=== PATIENT | female | born 1930 | race Caucasian/White ===

== ENCOUNTER → 2016-05-18 | Outpatient (CLI) | payer OTHER, BC ==
[~2016-05-18] MED LIST: CALC-20 PO; DORZ2SOL17 OPL; DORZ2SOL20 OPL; HYZ/50125 PO; LOSA100T26 PO; MULTTAB58 PO; SIMV20TA5 PO; TIMO0.2534 OPR; TMPOPS15 OPL; TRAV0.00 OPB; TYLOTC500 PO
[2016-05-18 09:39] LABS: BLOOD UREA NITROGEN 26 mg/dl (7-18); BUN/CREATININE RATIO 29.4 (10-20); CARBON DIOXIDE 28 mmol/L (21-32); CHLORIDE 111 mmol/L (98-107); CREATININE 0.88 mg/dl (0.60-1.20); GLUCOSE 87 mg/dl (70-99); POTASSIUM 3.9 mmol/L (3.5-5.1); SODIUM 145 mmol/L (136-145)
== END | disposition home or self-care (01) ==
LOC: C.LABVPSUW 09:08
PROVIDERS: ATTEND Internal Medicine Critical Care Medicine
DX: I10 Essential (primary) hypertension (principal)

== ENCOUNTER → 2016-06-02 | Outpatient (CLI) | payer OTHER ==
[~2016-06-02] MED LIST changes: -LOSA100T26 PO; +LOSA100T33 PO
--- NOTE | 2016-06-02 15:35 | MAMMOGRAPHY REPORT ---
BILATERAL DIGITAL SCREENING MAMMOGRAM WITH CAD: 06/02/2016 CLINICAL HISTORY: Routine screening. Patient has no complaints. TECHNIQUE: Current study was also evaluated with a Computer Aided Detection (CAD) system. Bilatera l CC and MLO views were obtained. COMPARISON: Comparison is made to exams dated: 05/31/2015 mammogram, 05/28/2014 mammogram, 02/03/2013 ma mmogram, 02/01/2012 mammogram, 01/30/2011 mammogram - [facility], and 02/26/2009 mammo gram. BREAST COMPOSITION: The tissue of both breasts is heterogeneously dense, which may obscure small ma sses. FINDINGS: No suspicious masses, calcifications, or areas of architectural distortion are noted in e ither breast. There has been no significant interval change compared to prior exams. Bilateral asym metries and scattered bilateral benign-appearing calcifications are not significantly changed. IMPRESSION: ACR BI-RADS CATEGORY 2: BENIGN There is no mammographic evidence of malignancy. A 1 year screening mammogram is recommended. The p atient will receive written notification of the results. Approximately 10% of breast cancers are not detected with mammography. A negative mammographic repor t should not delay biopsy if a clinically suggestive mass is present. Radha Jacob M.D. /:06/02/2016 12:48:45 [employer] Associate: Lucrecia ENGLAND(Pramod)(M), [facility] letter sent: Normal 1/2 BI-RADS Code: ACR BI-RADS Category 2: Benign
== END | disposition home or self-care (01) ==
LOC: C.MAMM 09:52
PROVIDERS: ATTEND Internal Medicine Critical Care Medicine
DX: Z12.31 Encounter for screening mammogram for malignant neoplasm of breast (principal)

== ENCOUNTER 2016-11-19 17:04 | Emergency (ER) | payer OTHER ==
[~2016-11-19] VITALS: Ht 162.6 cm; Wt 66.0 kg
[~2016-11-19 17:04] MED LIST changes: -DORZ2SOL17 OPL; -HYZ/50125 PO; +LOSA100T26 PO; -LOSA100T33 PO; -TMPOPS15 OPL
[2016-11-19 17:11] VITALS: TEMP 37; Ht 162.6 cm; Wt 66.0 kg
[2016-11-19] MEDS ORDERED: HYZ/50125 PO (17:29)
[2016-11-19] MEDS ORDERED: TMPOPS15 OPL (17:29)
[2016-11-19] MEDS ORDERED: DORZ2SOL17 OPL (17:29)
[2016-11-19] MEDS ORDERED: LIDO/EPINEPHRINE/SOD BICARB 20 ML VIAL INFIL ONE (17:34)
--- NOTE | 2016-11-19 17:41 | EMERGENCY ROOM VISIT NOTE ---
ED Visit Note First contact with patient: 17:27 CHIEF COMPLAINT: Foot laceration HISTORY OF PRESENT ILLNESS: This 86-year-old female patient presents to the emergency department immediately after cutting the right foot when she accidentally dropped repair of garden pema onto her foot. The bleeding has stopped. Denies weakness or numbness of the foot or toes. The patient rates the pain as none and 0/10. The patient denies any other injuries. The patient's Tetanus shot is up to date. REVIEW OF SYSTEMS: A 6 system review of systems was completed with positives and pertinent negatives listed in the HPI. ALLERGIES: Iodine, sulfa MEDICATIONS: Reviewed PMH: Hypertension SOCIAL HISTORY: Denies tobacco, 1 glass of wine per day PHYSICAL EXAM: Vital Signs: Reviewed Nurse's notes, vital signs stable. GENERAL : 86-year-old female, in no acute distress, well-developed, well-nourished. SKIN: There is a 1.5 cm long laceration on the dorsal aspect of the right foot over the MTP joint. The edges gape apart with traction. There is no foreign material in the wound and it looks clean. There is no active bleeding. No deep structures such as tendons, bones, or significant blood vessels are seen in the base of the wound. Normal strength and movement of the right great toe. Capillary refill less than 2 seconds. Normal sensation to light and sharp touch. EMERGENCY DEPARTMENT COURSE: I examined the patient. An x-ray of the toe was performed and reviewed Patient Name: KAYE MCCAULEY Unit Number: [id number] Dictated: 11/19/161804 Transcribed: 11/19/161804 MS Printed Date/Time: [~ rep prt dt]/[~ rep prt tm] [~ rep ct labl] - [~ rep ct ivnm] [facility] [place] [address] Dictated: 11/19/161804 Transcribed: 11/19/16 180 MS Printed Date/Time: [~ rep prt dt]/[~ rep prt tm] [~ rep ct labl] - [~ rep ct ivnm] R TOE(S) MIN 2 VIEWS CLINICAL HISTORY: ? Bony involvement of lac over R 1st MTP trauma COMPARISON: None. DISCUSSION: Moderate degenerative change first metatarsophalangeal joint. No acute bony abnormality. Cortical margins are intact. There is no evidence for soft tissue swelling. IMPRESSION: Degenerative change. No acute bony abnormality. The above report was generated using voice recognition software. It may contain grammatical, syntax or spelling errors. Electronically signed by: Barber Almaguer M.D. 11/19/2016 6:06 PM Dictated Date/Time: 11/19/2016 6:05 PM The status of this report is Signed. Draft = Not yet reviewed or approved by Radiologist. Signed = Reviewed and approved by Radiologist. <AttendingPhy></AttendingPhy> <FamilyPhy>Robert Jeff M.D.</FamilyPhy> < PrimaryPhy>Robert Jeff M.D.</PrimaryPhy> <UnitNumber>[id number]</UnitNumber> < VisitNumber>[id number]</VisitNumber> <PatientName>KAYE MCCAULEY</ PatientName> <DateOfBirth>1930</DateOfBirth> <Location>[facility]</Location> < ServiceDate>11/19/16</ServiceDate> <MNE>ESINDI</MNE> <OrderingPhy>Saida Daly PA-C</OrderingPhy> <OrderingPhyMNE>f rep ord dr steiner</OrderingPhyMNE> < DictatingPhyMNE>f rep dict dr steiner</DictatingPhyMNE> <CCListMNE>f rep ct jatin</ CCListMNE> <AdmittingPhyMNE>f pt admit dr steiner</AdmittingPhyMNE> <AttendingPhyMNE >f pt attend dr steiner</AttendingPhyMNE> <ConsultingPhyMNE>f pt consult dr steiner</ConsultingPhyMNE> <FamilyPhyMNE>f pt fam dr steiner</FamilyPhyMNE> <OtherPhyMNE>f pt other dr steiner</OtherPhyMNE> < PrimaryPhyMNE>f pt prim care dr steiner</PrimaryPhyMNE> <ReferringPhyMNE>f pt referring dr steiner</ReferringPhyMNE> Verbal consent was obtained to perform the procedure. Using sterile technique the wound was cleansed with Betadine. The area was sterilely draped. 2 ml of 1% buffered lidocaine was used to anesthetize the laceration on the foot. Once the patient was anesthetized, the wound was copiously irrigated under pressure with sterile saline. The wound was explored and was as described above. The laceration was repaired using 3 simple interrupted 5-0 nylon sutures with the wound edges being well approximated. The patient tolerated the procedure well. Hemostasis was achieved. The area was cleaned with sterile saline and dressed with bacitracin ointment and bandage. The patient was discharged home in good condition. DIAGNOSIS: Foot laceration DISCHARGE INSTRUCTIONS & TREATMENT: Keep wound clean. It is okay to gently wash the area with soapy water. Do not submerse it in water for long periods of time such as swimming, going in hot tubs or taking baths until the sutures come out. Do not allow any crusting or dried blood to accumulate on sutures. If this occurs, use a 1:1 solution of hydrogen peroxide/water on a Q-tip to clean the wound. Use an antibiotic ointment for 3-4 days, then let wound dry. Suture removal in 14 days. Return sooner for any signs of infection (increasing redness, swelling, drainage). Ice and elevate for swelling and pain.
[2016-11-19] MEDS ORDERED: XYLOCAINE 1%/SOD BICARB 20 ML VIAL INFIL ONE (17:45)
--- NOTE | 2016-11-19 17:54 | EMERGENCY ROOM VISIT NOTE ---
ED Visit Note First contact with patient: 17:27 This Patient was discussed with the physician [employer], Saida Daly PA-C. The pertinent historical and physical exam findings were confirmed. I agree with the studies ordered and with the interpretations of these studies. I agree with the disposition and care plan.
--- NOTE | 2016-11-19 18:08 | DIAGNOSTIC IMAGING REPORT ---
R TOE(S) MIN 2 VIEWS CLINICAL HISTORY: ? Bony involvement of lac over R 1st MTP trauma COMPARISON: None. DISCUSSION: Moderate degenerative change first metatarsophalangeal joint. No acute bony abnormality. Cortical margins are intact. There is no evidence for soft tissue swelling. IMPRESSION: Degenerative change. No acute bony abnormality. The above report was generated using voice recognition software. It may contain grammatical, syntax or spelling errors. Electronically signed by: Barber Almaguer M.D. 11/19/2016 6:06 PM Dictated Date/Time: 11/19/2016 6:05 PM
[2016-11-19 19:02] VITALS: BP 175/62; PULSE 55; O2SAT 97
== END 2016-11-19 19:03 | disposition home or self-care (01) ==
LOC: C.EDB 17:05 → C.EDD 19:03
DX: S91.311A Laceration without foreign body, right foot, initial encounter (principal); W29.8XXA Contact with other powered hand tools and household machinery, initial encounter; I10 Essential (primary) hypertension

== ENCOUNTER → 2017-06-08 | Outpatient (CLI) | payer OTHER, MEDICARE ==
[~2017-06-08] MED LIST changes: +DORZ2SOL17 OPL; -DORZ2SOL20 OPL; +HYZ/50125 PO; -LOSA100T26 PO; -TIMO0.2534 OPR; +TMPOPS15 OPL
== END | disposition home or self-care (01) ==
LOC: C.LABVPSUW 09:18
PROVIDERS: ATTEND Internal Medicine Critical Care Medicine
DX: I10 Essential (primary) hypertension (principal)

== ENCOUNTER → 2017-06-14 | Outpatient (CLI) | payer OTHER, MEDICARE ==
[2017-06-14 10:49] LABS: BLOOD UREA NITROGEN 22 mg/dl (7-18); CARBON DIOXIDE 27 mmol/L (21-32); CREATININE 0.85 mg/dl (0.60-1.20); GLUCOSE 77 mg/dl (70-99); SODIUM 141 mmol/L (136-145)
== END | disposition home or self-care (01) ==
LOC: C.LABVPSUW 10:14
PROVIDERS: ATTEND Internal Medicine Critical Care Medicine
DX: I10 Essential (primary) hypertension (principal)